=== PATIENT | female | born 1940 | race Caucasian/White ===

== ENCOUNTER → 2022-02-07 11:14 | Outpatient (CLI) | payer OTHER, SELFPAY ==
[2022-02-07 13:08] LABS: COVID19 -Nasal RAPID Negative (Negative)
== END ==
PROVIDERS: PCP Internal Medicine; Visit Provider Family Medicine Sleep Medicine
DX: Z20.822 Contact with and (suspected) exposure to COVID-19 (principal)
CPT/HCPCS: 87635; C9803

== ENCOUNTER 2022-02-09 07:37 | Day surgery (SDC) | payer OTHER, SELFPAY ==
[2022-02-09] VITALS (10 sets, daily range): BP systolic 128–159; BP diastolic 50–87; PULSE 62–76; RESP 15–18; TEMP 36.1–36.9; O2SAT 15–98; BMI 32.5
--- NOTE | 2022-02-09 | DI.RAD.S_ITS ---
PROCEDURE: XR LUMBAR SPINE 2-3V INDICATIONS: L3-4 MICRODISECTOMY TECHNIQUE: 2 operative views of the lumbar spine were acquired. COMPARISON: None. FINDINGS: 2 operative C-arm images were used to localize appropriate level for surgery. On the lateral view, the metallic instrument localizes L4 presuming 5 non rib-bearing lumbar vertebral bodies. IMPRESSION: Operative imaging utilized during lumbar surgery. Dictated by: Sacha Rice M.D. on 02/09/2022 at 12:53 Approved by: Sacha Rice M.D. on 02/09/2022 at 12:54
[2022-02-09] MEDS: ACETAMINOPHEN 325 MG TABLET 975 MG PO (07:54)
[2022-02-09] MEDS: LACTATED RINGERS 1,000 ML 42 ML IV (07:55)
[2022-02-09] MEDS: GABAPENTIN 300 MG CAPSULE PO (07:55)
--- NOTE | 2022-02-09 07:59 | SUR.OPER ---
Prone on spine table, head in foam head support, padded chest and pelvic supports, gel pad at knees, lower legs supported by pillows; nipples, genitalia and toes free of pressure, arms secured on foam padded arm boards at <90 degrees abduction. Tape over blanket at thigh secured to table.
--- NOTE | 2022-02-09 08:48 | PM.PREOP ---
Pre-operative Note COVID-19 COVID-19 status: Negative Result date/Date tested (Pos, Neg/Pending): 02/08/22 Criteria for continued procedure: Expected advancement of disease process, Possibility delay results in more complex future surgery or treatment, Increased loss of function, Continuing or worsening of significant or severe pain, Deterioration of the patient's condition or overall health and Delay expected to result in less-positive ultimate med/surg outcome Interval Note History & Physical reviewed/Exam performed by Physician: Yes Changes to H&P: No
--- NOTE | 2022-02-09 08:53 | P.OP_ITS ---
Operative Date/Time/Diagnoses Date of procedure: 02/09/22 Time of procedure: 08:55 Pre-op diagnosis: 1. L3-4 spinal stenosis 2. L3-4 disc herniation Post-op diagnosis: same Procedure & Clinicians Procedure: 1. L3-4 right hemilaminectomy and microdiscectomy 2. Utilization of microsurgical technique and operating microscope Same procedure as scheduled: Yes Indications: Patient has been having chronic back pain and worsening lumbar radiculopathy and symptoms of neurogenic claudication. Patient failed multiple conservative management with worsening pain weakness and numbness in her lower extremity. Patient has been having difficulty performing activity of daily living. After discussing risks benefits of treatment options, patient elected proceed with surgery. Surgeon: Jhonny Almanza Emergency Dispatcher: Taylor Rocha Click Yes if Unassisted: No Anesthesia Type: General Operative Notes Closure Type: primary Specimen(s): none sent Estimated Blood Loss (mL): 3 Blood products transfused: none Procedure in detail: Patient was seen in the preoperative area. Risks and benefits of the surgery was discussed with the patient. Informed consent was obtained from the patient and placed in the chart. Surgical site was marked. Patient was taken to the operative room. General anesthesia was administered. Prophylactic antibiotic was given to the patient less than 30 min before the incision was made. Patient was placed into a prone position on the Carlos table. Patient's back was then pre pped and draped in the sterile fashion. Time-out was performed at this time. Using AP and lateral C-arm imaging the interval between L3-4 was identified and marked on patient's back. A 1 inch incision 1 in from midline was made on the right side. The fascia was incised in line with skin incision. Globus MARS retractors was placed inside the incision and docked onto the L3 lamina. Using microsurgical technique and operating microscope, a L3 laminotomy was performed using a Kerrison rongeur. Liagamentum flavum was resected at the site of the laminotomy. The disc space at L3-4 was identified. Microdiscectomy was performed by incising the annulus with #11 blade. Microcurettes and pituitary was used to removed herniated disc fragments of disc from the epidural space. Patient's ligamentum flavum at the site of the hemilaminectomy was found to be hypertrophied was also resected at the side of the hemilaminectomy to further decompress the central canal. After the hemilaminectomy microdiskectomy was completed the epidural space was fully decompressed. After the microdiskectomy was completed, the area medial lateral superior and inferior to the area of the microdiskectomy was inspected and explored using a micro curette. No other impinging structure was identified. The wound was then irrigated with sterile normal saline. 40 mg Depo-Medrol was placed into the epidural space. The deep fascia was closed with 1-0 Vicryl. The subcutaneous tissue was closed with 2-0 Vicryl. The skin was closed with 4-0 Monocryl. Patient tolerated the procedure well. There were no complications. Patient was transferred recovery room in stable condition. Complications: none Post-operative Condition: stable Disposition: PACU Plan for aftercare: Discharge to home
[2022-02-09] MEDS: CEFAZOLIN 2 GM/20 ML SYRINGE IV (09:00)
[2022-02-09] MEDS: BUPIVACAINE 0.25% W/ EPI 30 ML VIAL INJ (09:20)
--- NOTE | 2022-02-09 10:31 | SUR.PHASEI ---
Pt slow to wake, follows commands.
[2022-02-09] MEDS: fentaNYL 100 MCG/2 ML INJ IV (10:43)
[2022-02-09] MEDS: OXYCODONE IR 5 MG TABLET PO ×2 (10:45→11:35)
--- NOTE | 2022-02-09 10:53 | SUR.PHASEI ---
Pt medicated with fentanly and oxycodone.
== END 2022-02-09 13:56 | disposition home or self-care (01) ==
PROVIDERS: PCP Internal Medicine; Referring Provider Orthopaedic Surgery Orthopaedic Surgery of the Spine; Visit Provider Orthopaedic Surgery Orthopaedic Surgery of the Spine
PROC: (CPT 63030; principal; 2022-02-09 08:45)
DX: M48.062 Spinal stenosis, lumbar region with neurogenic claudication (principal); M51.16 Intervertebral disc disorders with radiculopathy, lumbar region; K21.9 Gastro-esophageal reflux disease without esophagitis; E66.9 Obesity, unspecified; Z68.32 Body mass index [BMI] 32.0-32.9, adult
CPT/HCPCS: 63030; 72100; 76000; J0690; J3010